=== PATIENT | male | born 1965 | race American Indian/Alaskan Native ===

== ENCOUNTER 2017-04-25 11:14 | Emergency (ER) | payer OTHER ==
[2017-04-25 11:25] VITALS: BMI 22.8
[2017-04-25 11:29] VITALS: TEMP 99
--- NOTE | 2017-04-25 12:25 | ED PDOC ---
Arrival/HPI - General Chief Complaint: Cough, Cold, Congestion Time Seen by Provider: 04/25/17 12:21 Historian: Patient - History of Present Illness Narrative History of Present Illness (Text): 04/25/17 12:19 A 52 year old male, with no significant past medical history, presents to the emergency department complaining of uri symptoms for 3 days. Patient reports sinus headache, chest pain when coughing only, productive cough, R ear pain, and sore throat x 3 days. Reports chills. Patient denies any fever, shortness of breath, or any other complaints at this time. PMD: Dr. Paco Palacio 04/25/17 14:00 Time/Duration: < week (3 days) Symptom Onset: Gradual Symptom Course: Unchanged Past Medical History - Provider Review Nursing Documentation Reviewed: Yes - Infectious Disease Hx of Infectious Diseases: None - Cardiac Hx Hypertension: Yes - Psychiatric Hx Substance Use: No - Anesthesia Hx Anesthesia: No Family/Social History - Physician Review Nursing Documentation Reviewed: Yes Family/Social History: No Known Family HX Smoking Status: Never Smoked Hx Alcohol Use: No Hx Substance Use: No Allergies/Home Meds Allergies/Adverse Reactions: Allergies No Known Allergies Allergy (Verified 04/25/17 11:25) Home Medications: Home Meds Medication Instructions Recorded Confirmed Lisinopril/Hydrochlorothiazide 1 tab PO DAILY 04/25/17 04/25/17 [Lisinopril-Hctz 20-25 mg Tab] Review of Systems - Physician Review All systems were reviewed & negative as marked: Yes - Review of Systems Constitutional: absent: Fevers ENT: Sore Throat, Rhinorrhea, Other (right ear pain). absent: Hearing Changes Respiratory: Cough (with yellowish phlegm), Sputum. absent: SOB, Wheezing Cardiovascular: Chest Pain (only with cough). absent: Palpitations, Edema, Calf Pain, YOUSSEF, Orthopnea, Syncope Gastrointestinal: absent: Abdominal Pain, Constipation, Diarrhea, Nausea, Vomiting Genitourinary Male: absent: Dysuria, Frequency Musculoskeletal: Arthralgias Skin: absent: Rash Neurological: Headache. absent: Dizziness, Focal Weakness, Gait Changes, Speech Changes Physical Exam Vital Signs Reviewed: Yes Vital Signs Temp Pulse Resp BP Pulse Ox 04/25/17 13:55 72 16 122/82 98 04/25/17 12:52 69 18 121/71 96 04/25/17 11:26 99.0 F 75 18 123/75 95 Temperature: Afebrile Blood Pressure: Normal Pulse: Regular Respiratory Rate: Normal Appearance: Positive for: Well-Appearing, Comfortable Pain Distress: None Mental Status: Positive for: Alert and Oriented X 3 - Systems Exam Head: Present: Atraumatic, Normocephalic Pupils: Present: PERRL Ears: Present: Normal (left ear TM and ear WNL), Normal Canal, Other (wax to R ear, normal TM). No: Erythema, Fluid, TM Perf Mouth: Present: Moist Mucous Membranes Pharnyx: Present: ERYTHEMA. No: EXUDATE, TONSILS ENLARGED, Peritonsilar Swelling, Uvular Deviation Nose (External): Present: Atraumatic Neck: Present: Normal Range of Motion. No: Meningeal Signs Respiratory/Chest: Present: Clear to Auscultation, Good Air Exchange. No: Respiratory Distress, Accessory Muscle Use Cardiovascular: Present: Regular Rate and Rhythm, Normal S1, S2. No: Murmurs Abdomen: Present: Normal Bowel Sounds. No: Tenderness, Distention, Peritoneal Signs Upper Extremity: Present: Normal Inspection Lower Extremity: Present: Normal Inspection. No: Edema Neurological: Present: GCS=15, CN II-XII Intact Skin: Present: Warm, Dry. No: Rashes Psychiatric: Present: Alert, Oriented x 3 Medical Decision Making ED Course and Treatment: 04/25/17 12:22 Impression: 52 year old male with uri symptoms. Chest pain only when coughing Plan: -- Chest X-ray -- Influenza A B Test -- Rapid Strep Test -- Reassess and disposition Progress Notes: 04/25/2017 13:12 Chest X-ray IMPRESSION: No active pulmonary disease. Dictator: Yee Cordero MD 04/25/17 13:28 Symptoms >3 days so outside tamiflu window. Strep negative. Cxray negative. Requesting work note. Given detailed return instructions. - Lab Interpretations Lab Results: Lab Results 04/25/17 12:45: Influenza Typ A,B (EIA) Negative for flu a/b, Grp A Beta Strep Ag Negative - RAD Interpretation Radiology Orders: 04/25/17 12:22 CHEST TWO VIEWS (PA/LAT) [RAD] Stat - Medication Orders Current Medication Orders: Discontinued Medications Ibuprofen (Motrin Tab) 600 mg PO STAT STA Stop: 04/25/17 13:30 Last Admin: 04/25/17 13:45 Dose: 600 mg MAR Pain/Vitals Document 04/25/17 13:45 HI (Rec: 04/25/17 13:45 HI [id number]) Pain Reassessment Is This A Pain ReAssessment? No - Scribe Statement The provider has reviewed the documentation as recorded by the Scribe Demetrio Vegas Provider Scribe Attestation: All medical record entries made by the Scribe were at my direction and personally dictated by me. I have reviewed the chart and agree that the record accurately reflects my personal performance of the history, physical exam, medical decision making, and the department course for this patient. I have also personally directed, reviewed, and agree with the discharge instructions and disposition. Disposition/Present on Arrival - Present on Arrival Any Indicators Present on Arrival: No History of DVT/PE: No History of Uncontrolled Diabetes: No Urinary Catheter: No History of Decub. Ulcer: No History Surgical Site Infection Following: None - Disposition Have Diagnosis and Disposition been Completed?: Yes Diagnosis: Upper respiratory infection Disposition: HOME/ ROUTINE Disposition Time: 13:28 Patient Plan: Discharge Patient Problems: Current Active Problems Problem Status Onset Upper respiratory infection Acute Condition: GOOD Discharge Instructions (ExitCare): Viral Upper Respiratory Infection, Adult (DC ) Additional Instructions: Follow-up with PMD within 2 days. Return to ED if condition worsens. Motrin for pain. Referrals: Paco Palacio APN [Primary Care Provider] - Follow up with primary Forms: [employer] (Hungarian), WORK NOTE
[2017-04-25 13:03] LABS: INFLUENZA A B NEGATIVE FOR FLU A/B (NEGATIVE)
[2017-04-25 14:00] VITALS: BP 122/82; PULSE 72; RESP 16; O2SAT 98
--- NOTE | 2017-04-25 17:45 | CARD ---
APPROVED REPORT EKG Measurement Heart [id number] <Conclusion> Sinus rhythm with occasional premature ventricular complexes Possible Left atrial enlargement Nonspecific T wave abnormality Abnormal ECG
== END 2017-04-25 13:55 | disposition home or self-care (01) ==
LOC: MERGE 11:14 → ED 11:14
DX: J06.9 Acute upper respiratory infection, unspecified (principal); I10 Essential (primary) hypertension

== ENCOUNTER 2017-06-07 19:29 | Emergency (ER) | payer OTHER ==
[2017-06-07 19:29] VITALS: BMI 22.8
[2017-06-07 19:39] VITALS: BP 160/106; PULSE 87; RESP 16; TEMP 98.9; O2SAT 97
--- NOTE | 2017-06-07 19:57 | ED PDOC ---
Arrival/HPI - General Chief Complaint: Male Genitourinary Time Seen by Provider: 06/07/17 19:56 Historian: Patient - History of Present Illness Narrative History of Present Illness (Text): 06/07/17 19:57 This 52 yo male with pmh HTN, presents to this ED for blood in the semen after sexual intercourse this morning. Patient stated he was wearing a condom. Patient denies penile trauma, testicular pain, penile discharge, penile rash, urinary frequency, or hematuria. Time/Duration: Other (see hpi) Context: Home Past Medical History - Provider Review Nursing Documentation Reviewed: Yes - Infectious Disease Hx of Infectious Diseases: None - Cardiac Hx Cardiac Disorders: Yes Hx Hypertension: Yes - Pulmonary Hx Respiratory Disorders: No - Neurological Hx Neurological Disorder: No - HEENT Hx HEENT Disorder: No - Renal Hx Renal Disorder: No - Hematological/Oncological Hx Blood Disorders: No - Integumentary Hx Dermatological Disorder: No - Musculoskeletal/Rheumatological Hx Musculoskeletal Disorders: No - Gastrointestinal Hx Gastrointestinal Disorders: No - Genitourinary/Gynecological Hx Genitourinary Disorders: No - Psychiatric Hx Psychophysiologic Disorder: No Hx Substance Use: No - Surgical History Other/Comment: PENILE SURGERY A CHILD - Anesthesia Hx Anesthesia: No - Suicidal Assessment Feels Threatened In Home Enviroment: No Family/Social History - Physician Review Nursing Documentation Reviewed: Yes Family/Social History: Other (noncontributory) Smoking Status: Never Smoked Hx Alcohol Use: Yes (occassional) Hx Substance Use: No Allergies/Home Meds Allergies/Adverse Reactions: Allergies No Known Allergies Allergy (Verified 06/07/17 19:32) Home Medications: Home Meds Medication Instructions Recorded Confirmed Lisinopril/Hydrochlorothiazide 1 tab PO DAILY 04/25/17 06/07/17 [Lisinopril-Hctz 20-25 mg Tab] Review of Systems - Review of Systems Constitutional: Normal. absent: Fatigue, Weight Change, Fevers, Night Sweats Eyes: Normal ENT: Normal Respiratory: Normal Cardiovascular: Normal Gastrointestinal: Normal Genitourinary Male: Other (see hpi) Musculoskeletal: Normal Skin: Normal Neurological: Normal Endocrine: Normal Hemo/Lymphatic: Normal Psychiatric: Normal Physical Exam Vital Signs Temp Pulse Resp BP Pulse Ox 06/07/17 19:33 98.9 F 87 16 160/106 H 97 Temperature: Afebrile Blood Pressure: Normal Pulse: Regular Respiratory Rate: Normal Appearance: Positive for: Well-Appearing, Non-Toxic, Comfortable Pain Distress: None Mental Status: Positive for: Alert and Oriented X 3 - Systems Exam Head: Present: Atraumatic, Normocephalic Pupils: Present: PERRL Extroacular Muscles: Present: EOMI Conjunctiva: Present: Normal Mouth: Present: Moist Mucous Membranes Abdomen: No: Tenderness, Rebound, Guarding Genitourinary Male: Present: Normal External Genitalia, Circumcised Penis. No: Lesions, Penile Discharge, Testicle Tenderness, Penile Swelling, Masses, Erythema, Hernias, Testicle Swelling Back: Present: Normal Inspection. No: CVA Tenderness Upper Extremity: Present: Normal Inspection, Normal ROM Lower Extremity: Present: Normal Inspection, Normal ROM Neurological: Present: GCS=15, CN II-XII Intact, Speech Normal Skin: Present: Warm, Dry, Normal Color. No: Rashes Psychiatric: Present: Alert, Oriented x 3, Normal Insight Medical Decision Making ED Course and Treatment: 06/07/17 21:53 Re-evaluation. Patient feels better. Discussed results and plan with patient who expresses understanding. All questions answered and there is agreement with the plan to discharge home with instructions. Patient stable for discharge. Return if symptoms persist or worsen. Patient was recommended to see Urologist in 1-2 days. To return to ED if symptoms worsen. Re-evaluation Time: 21:53 Reassessment Condition: Re-examined, Improved - Lab Interpretations Lab Results: Lab Results 06/07/17 21:12: Urine Color Fanny, Urine Appearance Clear, Urine pH 6.0, Ur Specific Rickman 1.020, Urine Protein Negative, Urine Glucose (UA) Negative, Urine Ketones Negative, Urine Blood Negative, Urine Nitrate Negative, Urine Bilirubin Negative, Urine Urobilinogen 0.2, Ur Leukocyte Esterase Negative I have reviewed the lab results: Yes Interpretation: No clinic. lab abnormalty - Medication Orders Current Medication Orders: Discontinued Medications Azithromycin (Zithromax) 1,000 mg PO STAT STA PRN Reason: Protocol Stop: 06/07/17 20:45 Last Admin: 06/07/17 21:09 Dose: 1,000 mg Ceftriaxone Sodium (Rocephin) 250 mg IM STAT STA PRN Reason: Protocol Stop: 06/07/17 20:45 Last Admin: 06/07/17 21:09 Dose: 250 mg IM Administration Charges Document 06/07/17 21:09 GMD (Rec: 06/07/17 21:09 GMD [id number]) Injection Site MAR Injection Site Left Deltoid Charges for Administration # of IM Administrations 1 Disposition/Present on Arrival - Present on Arrival Any Indicators Present on Arrival: No History of DVT/PE: No History of Uncontrolled Diabetes: No Urinary Catheter: No History of Decub. Ulcer: No History Surgical Site Infection Following: None - Disposition Have Diagnosis and Disposition been Completed?: Yes Diagnosis: Bleeding of penis Disposition: HOME/ ROUTINE Disposition Time: 21:53 Patient Plan: Discharge Patient Problems: Current Active Problems Problem Status Onset Bleeding of penis Acute Condition: GOOD Additional Instructions: Call private doctor an private Urologist for follow up visit. Review STD result with your doctor in 2 days. Return to emergency if symptoms returns. Referrals: Paco Palacio APN [Primary Care Provider] - Follow up with primary Miguel Easley MD [Staff Provider] - Follow up with primary Forms: [employer] (Nicaraguan), WORK NOTE
[2017-06-07] MEDS ORDERED: cefTRIAXone (Rocephin) 250 mg Inj IM STA (20:44)
[2017-06-07 21:24] LABS: URINE BILIRUBIN NEGATIVE (NEGATIVE); URINE BLOOD NEGATIVE (NEGATIVE); URINE GLUCOSE (UA) NEGATIVE (NEGATIVE); URINE LEUKOCYTE ESTERASE NEGATIVE Leu/uL (NEGATIVE); URINE UROBILINOGEN 0.2 E.U./dL (<1 E.U./dL)
[2017-06-07 21:25] LABS: URINE APPEARANCE CLEAR (CLEAR); URINE COLOR AMBER (YELLOW); URINE PROTEIN NEGATIVE mg/dL (<30 mg/dL)
== END 2017-06-07 22:11 | disposition home or self-care (01) ==
LOC: ED 19:29
DX: N48.89 Other specified disorders of penis (principal)
CPT/HCPCS: 81003; 87491; 87591; 96372; 99283; J0696